=== PATIENT | female | born 1980 | race African-American/Black ===

== ENCOUNTER 2021-06-24 08:38 | Emergency (ER) | payer MEDICAID, OTHER ==
[~2021-06-24] VITALS: Ht 177.8 cm; Wt 70.0 kg
[2021-06-24] MEDS ORDERED: MORPHINE SULFATE 4 MG/ML CPJ (NOT FOR IM USE) IV ONE (09:00)
[2021-06-24] MEDS ORDERED: ACETAMINOPHEN 325MG TABLET PO ONE (09:00)
[2021-06-24] MEDS ORDERED: KETOROLAC 15MG/ML VIAL IV ONE (09:00)
[2021-06-24 09:43] LABS: BASOPHILS % 0.9 % (0.0-2.0); EOSINOPHILS % 1.8 % (0.0-5.0); HEMATOCRIT. 26.4 % (36.0-48.0); HEMOGLOBIN. 8.6 g/dL (12.0-16.0); LYMPHOCYTES % 37.3 % (20.0-50.0); MEAN CORPUSCULAR HEMOGLOBIN 25.9 pg (28.0-32.0); MEAN CORPUSCULAR VOLUME 79.7 fL (81.0-99.0); MEAN PLATELET VOLUME 7.3 fl (7.4-10.4); MONOCYTES % 13.4 % (2.0-8.0); NEUTROPHILS % 46.6 % (40.0-76.0); PLATELET 349 x1000/uL (130-400); RED BLOOD CELL COUNT 3.31 mill/uL (4.2-5.4); RED CELL DISTRIBUTION WIDTH 20.8 % (11.6-14.6)
[2021-06-24 09:53] LABS: CHLORIDE 111 mEq/L (98-107)
[2021-06-24 10:03] LABS: B-HCG QUANTITATIVE < 1 mIU/mL (<3)
[2021-06-24 11:14] VITALS: BP 98/66
== END 2021-06-24 11:16 | disposition home or self-care (01) ==
LOC: ER 08:56
DX: D21.9 Benign neoplasm of connective and other soft tissue, unspecified (principal); Z98.890 Other specified postprocedural states
CPT/HCPCS: 36415; 76830; 76856; 80053; 81025; 84702; 85025; 86850; 86900; 86901; 99284; J1885